=== PATIENT | male | born 1945 | race Caucasian/White ===

== ENCOUNTER → 2018-02-09 | Outpatient (CLI) | payer MEDICARE, OTHER | LOC: M.RAD 14:39 | DX: M76.51 Patellar tendinitis, right knee (principal); M25.461 Effusion, right knee; L53.9 Erythematous condition, unspecified ==

== ENCOUNTER → 2018-05-25 | Outpatient (CLI) | payer MEDICARE, OTHER ==
[~2018-05-25] MED LIST: ASPIR 8181 MG PO; COZAAR 25 MG TA25 M1 PO; FISH OIL 1,001000 M2 PO; LIPITOR10 MG PO; TIMOLOL 0.5%-LAT5 ML OPHTHALMIC
--- NOTE | ~2018-05-25 | SLEEP ---
[address] [address] SLEEP STUDY REPORT Name: KYLER CABRAL Room: [facility].#: [id number] Admission: 05/25/18 Attend Phys: Birgit White Discharge: Date of : 47 Report #: [id number] THIS REPORT FOR: //name// CC: Elton Esparza DO This study has been reviewed in its entirety by a board certified sleep specialist DATE OF SERVICE: 05/25/2018 TYPE OF REPORT: Sleep study. ATTENDING PHYSICIAN: Elton Esparza D.O. The patient is a 73-year old who weighs 146 pounds with a BMI of 28.5. The patient's Vickery score was 14. The patient underwent split night study at [facility]. During the night study, the patient spent 441 minutes in bed and slept for 165 minutes with a low sleep efficiency of 37%. Sleep latency was 17 minutes with a REM latency of 229 minutes. Overall, sleep architecture showed increased stage 1 and stage 2 sleep, normal N3 sleep and significantly reduced REM sleep, which was 2.7% of the total sleep time. During the initial diagnostic portion of the study, the patient slept for 93.5 minutes. During that time, the patient had 2 obstructive apneas, 1 central apnea, no mixed apneas and 48 hypopneas. The patient's apnea-hypopnea index was 32.7 per hour. The patient's REM index was 40 per hour and a supine index of 49 per hour. EKG monitoring revealed an average heart rate of 53 beats per minute with a maximum 85 beats per minute. No sustained arrhythmias were observed. PLMs were seen at an index of 46 per hour and 12 per hour caused EEG arousals. Nocturnal oximetry study revealed an average oxygen saturation of 94% with a lowest of 64%. Four minutes were spent at an oxygen saturation less than 89%. The patient met the criteria for CPAP initiation. It was started at 5 cm water and titrated up to 10 cm of water. At the final pressure, the patient had 19 minutes of sleep. The patient's AHI was still 58 per hour and oxygen saturation remained above 89%. The patient had no supine or REM sleep at the final pressure. Optimal CPAP pressure was not achieved. IMPRESSION: [place] [address] SLEEP STUDY REPORT Name: KYLER CABRAL Room: [facility]#: [id number] Admission: 05/25/18 Attend Phys: Birgit White Discharge: Date of : 47 Report #: [id number] 1. Severe sleep apnea-hypopnea syndrome at an thjzs-elkl-wzmtjepz index of 32.7 per hour with worsening gnpnz-ylgb-yqoskrex index of 49 per hour during supine sleep. 2. Nocturnal hypoxia secondary to obstructive sleep apnea but resolved with continuous positive airway pressure. 3. Severe periodic limb movements, which did improve while the patient was on continuous positive airway pressure from an index of 46 per hour to 7.6 per hour. RECOMMENDATIONS: 1. Optimum CPAP pressure was not achieved on this split night study. I would recommend that the patient should return to the sleep lab for a full night CPAP titration study. 2. Once optimum CPAP pressure is achieved, then follow up in 4-6 weeks to assess compliance with CPAP and to document clinical improvement. 3. Weight loss is advised. 4. Avoid [employer] depressants. 5. Cautioned regarding driving until symptoms of sleep apnea resolve with the use of CPAP. 6. PLMs does not need to be treated unless the patient has symptoms of restless legs during the day. By: [id number] Cheng MD /stanley
== END ==
LOC: M.SLEEPLAB 19:44
DX: G47.33 Obstructive sleep apnea (adult) (pediatric) (principal); G47.61 Periodic limb movement disorder; R09.02 Hypoxemia; I10 Essential (primary) hypertension; H91.93 Unspecified hearing loss, bilateral; R97.20 Elevated prostate specific antigen [PSA]; Z71.89 Other specified counseling

== ENCOUNTER 2018-05-27 06:06 | Emergency (ER) | payer MEDICARE, OTHER ==
[~2018-05-27] VITALS: Ht 152.4 cm; Wt 66.2 kg
[2018-05-27] MEDS ORDERED: LIPITOR10 MG PO (06:25)
[2018-05-27] MEDS ORDERED: COZAAR 25 MG TA25 M1 PO (06:26)
[2018-05-27] MEDS ORDERED: TIMOLOL 0.5%-LAT5 ML OPHTHALMIC (06:26)
[2018-05-27] MEDS ORDERED: ASPIR 8181 MG PO (06:27)
[2018-05-27] MEDS ORDERED: FISH OIL 1,001000 M2 PO (06:27)
[2018-05-27 08:01] VITALS: BP 144/77
== END 2018-05-27 08:02 | disposition home or self-care (01) ==
LOC: M.ERS 06:06
DX: S80.02XA Contusion of left knee, initial encounter (principal); X58.XXXA Exposure to other specified factors, initial encounter; Y93.89 Activity, other specified; Y92.89 Other specified places as the place of occurrence of the external cause; Y99.8 Other external cause status

== ENCOUNTER → 2018-06-21 | Outpatient (CLI) | payer OTHER ==
--- NOTE | 2018-06-22 13:04 | SLEEP ---
[address] [address] SLEEP STUDY REPORT Name: KYLER CABRAL Room: [facility]#: [id number] Admission: 06/21/18 Attend Phys: Ronny Guan MD Discharge: Date of : 47 Report #: [id number] THIS REPORT FOR: //name// CC: Ronny Esparza This study has been reviewed in its entirety by a board certified sleep specialist DATE OF SERVICE: 06/21/2018 ATTENDING PHYSICIAN: Dr. Ronny Guan. The patient is a 73-year-old who weighs 149 pounds with a BMI of 29.1. The patient had a previous sleep study and was found to have severe JATINDER and the optimum CPAP pressure was not achieved despite reaching 10 cm of CPAP pressure. He was recommended to return for a CPAP/BiPAP titration study. During the night study, which was performed at [facility], the patient spent 430 minutes in bed and slept for 166 minutes with a poor sleep efficiency of 39%. Sleep latency was 19.9 minutes with a REM latency of 191 minutes. Overall sleep architecture showed increased stage 1 sleep, slightly increased stage 2 sleep, increased slow wave and reduced REM sleep, which was 4% of the total sleep time. EKG monitoring revealed normal sinus rhythm. Average heart rate of 51 beats per minute with a maximum of 84 beats per minute. No sustained arrhythmias observed. PLMS are seen at an index of 52 per hour and 8 per hour caused EEG arousals. The patient was initially started on CPAP at a pressure of 6 cm of water; however, he could not tolerate the CPAP pressure. As a result, he was switched to BiPAP at 6/4. The patient's BiPAP pressure was increased all the way up to 16/12. However, increasing central apneas were observed beyond BiPAP pressure of 12/7. The best results were seen at a BiPAP pressure of 12/6. The patient had 56 minutes of sleep. The patient had REM as well as supine sleep. The patient's AHI was reduced to 3.2 per hour and oxygen saturation remained above 89%. IMPRESSION: 1. Severe sleep apnea diagnosed by previous sleep study. 2. 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 3. Severe periodic [place] [address] SLEEP STUDY REPORT Name: KYLER CABRAL Room: [facility]#: [id number] Admission: 06/21/18 Attend Phys: Ronny Guan MD Discharge: Date of : 47 Report #: [id number] RECOMMENDATIONS: 1. BiPAP at 12/6 resulted in significant resolution of the patient's sleep apnea and should be used on a nightly basis. 2. Follow up in 4-6 weeks to assess compliance with BiPAP and to document clinical improvement. Would also recommend review of the download data at that time. 3. Weight loss is advised. 4. Avoid [employer] depressants. 5. Cautioned regarding driving until symptoms of sleep apnea have resolved with the use of BiPAP. 6. The patient should also be further evaluated for symptoms of restless legs during the day. If present, it can be treated with dopaminergic agonist agents. 7. The patient's insomnia should be further evaluated and treated if it is a chronic condition. <ELECTRONICALLY SIGNED> By: Celso Cheng MD 06/22/18 1304 [id number] Cheng MD /nt
== END ==
LOC: M.SLEEPLAB 19:48
DX: G47.33 Obstructive sleep apnea (adult) (pediatric) (principal); G47.19 Other hypersomnia; G47.61 Periodic limb movement disorder; R53.83 Other fatigue